=== PATIENT | male | born 1960 | race Caucasian/White ===

== ENCOUNTER 2017-03-09 11:01 | Emergency (ER) | payer OTHER ==
--- NOTE | 2017-03-09 11:21 | CPEKG ---
Heart Rate: 99 RR Interval: 606 QRSD Interval: 118 QT Interval: 380 QTC Interval: 488 QRS [place]: -8 T Wave [place]: 149 EKG Severity - ABNORMAL ECG - EKG Impression: ATRIAL FIBRILLATION, V-RATE 65-114 EKG Impression: NONSPECIFIC INTRAVENTRICULAR CONDUCTION DELAY EKG Impression: PROBABLE LVH WITH SECONDARY REPOL ABNRM Electronically Signed By: Dean Burnett 09-Mar-2017 12:45:25
--- NOTE | 2017-03-09 11:41 | EDPHY ---
H & P Time Seen by Provider: 03/09/17 11:16 HPI/ROS: CHIEF COMPLAINT: Cardioversion HISTORY OF PRESENT ILLNESS: Patient is had fatigue and a little bit of dyspnea on exertion for the last week and a couple of days which is his usual symptom when he goes into atrial fibrillation. His monitor transmitted and he talked with [employer] yesterday. Plan is for cardioversion but apparently he says that external pads do not work any always has to use his implanted device. REVIEW OF SYSTEMS: Fatigue but no syncope or chest pain. Mild dyspnea on exertion. No leg swelling. A comprehensive 10 point review of systems is otherwise negative aside from elements mentioned in the history of present illness. PAST MEDICAL HISTORY: Atrial fibrillation Social history: Primary sawyer helper is Zia General Appearance: Alert and conversant, cooperative. Eyes: No scleral icterus. ENT, Mouth: Normal mucous membranes. Respiratory: Normal respiratory effort, breath sounds equal, lungs are clear to auscultation. Cardiovascular: Irregular but not tachycardic. Gastrointestinal: Abdomen is soft and non tender. Neurological: Alert and oriented x3. Normally conversant. Face symmetric, normal movement and sensation in all extremities. Skin: Warm and dry, no rashes. Musculoskeletal: No peripheral edema and no joint swelling. Psychiatric: Not agitated. Emergency Department course/MDM: Dr. Vicente to see, 1141. [employer] manufacturer representative paged to come to the emergency department 1346: Repeat INR 2.0, cardioversion recommended by sawyer helper, and will be performed by Dr. Vicente, sedation by myself. Patient is NPO since 9:00 p.m. last night except for a sip of water with his medications at 7:00 a.m. today. He has had propofol in the past without complications. 1446: Awake, alert, fluent speech, moving all 4 extremities, back to neurologic baseline. Cardiology follow-up per Dr. Vicente. For cardioversion please see Dr. Vicente's documentation. Smoking Status: Never smoked Constitutional: Initial Vital Signs Temperature (C) 36.5 C 03/09/17 11:04 Heart Rate 117 H 03/09/17 11:04 Respiratory Rate 20 03/09/17 11:04 Blood Pressure 156/93 H 03/09/17 11:04 O2 Sat (%) 96 03/09/17 11:04 O2 Delivery Mode [Post Nasal Cannula Procedure 4th] O2 Delivery Mode [Post Nasal Cannula Procedure 3rd] O2 Delivery Mode [Post Non-Rebreather Mask Procedure 2nd] O2 Delivery Mode [Post Non-Rebreather Mask Procedure 1st] O2 Delivery Mode [Procedural Non-Rebreather Mask 1st] O2 Delivery Mode [.Immediate Non-Rebreather Mask Pre-Procedure] O2 Delivery Mode Room Air O2 (L/minute) [Post Procedure 2 4th] O2 (L/minute) [Post Procedure 2 3rd] O2 (L/minute) [Post Procedure 12 2nd] O2 (L/minute) [Post Procedure 12 1st] O2 (L/minute) [Procedural 1st] 12 O2 (L/minute) [.Immediate Pre- 12 Procedure] Allergies/Adverse Reactions: No Known Allergies Allergy (Verified 03/09/17 11:03) Home Medications: Medication Instructions Recorded Metoprolol Succinate Xr [Toprol Xl 75 mg PO DAILY 12/29/12 50 mg (*)] Warfarin Sodium [Coumadin 3MG (*)] 3 mg PO MWF@12/29/12 Psyllium Husk [Metamucil] 1.56 gm PO DAILY 04/11/16 Warfarin Sodium [Coumadin 4MG (*)] 4 mg PO SUTUTHSA@04/20/16 Levalbuterol Inhaler [Xopenex Hfa 1 puffs IH Q6H PRN #0 mdi 04/22/16 Inhaler (*)] Medical Decision Making - Diagnostics EKG Interpretation: 12-lead EKG interpreted by me; official reading is in trace master. My interpretation is atrial fibrillation rate 65-114 with nonspecific conduction delay Procedures: Procedure: Procedural sedation. Indication: cardioversion A pre-sedation evaluation was completed on the patient at 1400 including medical history, allergies and medications, last oral intake, previous experience with sedation, airway assessment, physical examination. Patient is an appropriate candidate for procedural sedation. The risks, benefits, and alternatives of the sedation were discussed with the patient including but not limited to need for airway intervention, cardiovascular complications, ; and consent obtained. The patient is ASA class 2E, Mallampati and 3/3/2 airway assessments were completed. A time out was completed. The patient was sedated with propofol. The patient was monitored with continuous pulse oximetry , cafeteria monitor and end tidal CO2. There were no complications and no significant hypoxemia. I remained at the bedside for the sedation. The total time I spent in the procedural sedation was 11 minutes. At 1415 the patient is alert, awake, and back to neurological and respiratory baseline. Differential Diagnosis: Differential for weakness and fatigue considered including but not limited to hyponatremia, hypoglycemia, atrial fibrillation, cardiac ischemia. - Data Points Laboratory Results: Laboratory Results 03/09/17 11:50 03/09/17 03/09/17 03/09/17 13:20 11:50 11:50 PT 22.8 SEC H SEC 21.9 SEC H SEC (12.0-15.0) (12.0-15.0) INR 2.00 H 1.90 H (0.83-1.16) (0.83-1.16) APTT 32.9 SEC SEC (23.0-38.0) Sodium 141 mEq/L mEq/L (134-144) Potassium 4.6 mEq/L mEq/L (3.5-5.2) Chloride 108 mEq/L mEq/L (97-110) Carbon Dioxide 20 mEq/l L mEq/l (22-31) Anion Gap 13 mEq/L mEq/L (8-16) BUN 16 mg/dL mg/dL (7-23) Creatinine 1.1 mg/dL mg/dL (0.7-1.3) Estimated GFR > 60 Glucose 95 mg/dL mg/dL (70-100) Calcium 9.0 mg/dL mg/dL (8.5-10.4) Magnesium 2.3 mg/dL mg/dL (1.6-2.3) Departure - Departure Clinical Impression: Atrial fibrillation Qualifiers: Atrial fibrillation type: paroxysmal Qualified Code(s): I48.0 - Paroxysmal atrial fibrillation Condition: Good Instructions: A-fib (Atrial Fibrillation) (ED), Procedural Sedation (ED) Referrals: JUAN LATHAM [Other] - As per Instructions Doug Lizarraga MD [Medical Doctor] - As per Instructions
[2017-03-09 12:26] LABS: ANION GAP 13 mEq/L (8-16); CARBON DIOXIDE 20 mEq/l (22-31); CHLORIDE 108 mEq/L (97-110); CREATININE 1.1 mg/dL (0.7-1.3); GLOMERULAR FILTRATION RATE > 60; GLUCOSE 95 mg/dL (70-100); MAGNESIUM 2.3 mg/dL (1.6-2.3); POTASSIUM 4.6 mEq/L (3.5-5.2); SODIUM 141 mEq/L (134-144)
[2017-03-09 12:40] LABS: INR 1.9 (0.83-1.16); PROTIME(PATIENT) 21.9 SEC (12.0-15.0)
[2017-03-09 13:39] LABS: PROTIME(PATIENT) 22.8 SEC (12.0-15.0)
[2017-03-09 13:40] LABS: APTT 32.9 SEC (23.0-38.0)
[2017-03-09] MEDS ORDERED: PROPOFOL 200 MG/20 ML VIAL ONE (13:54)
[2017-03-09] MEDS ORDERED: PROPOFOL 200 MG/20 ML VIAL IVP ONE (14:05)
--- NOTE | 2017-03-09 14:15 | CPEKG ---
Heart Rate: 79 RR Interval: 759 P-R Interval: 200 QRSD Interval: 106 QT Interval: 380 QTC Interval: 436 P [place]: 39 QRS [place]: -7 T Wave [place]: 161 EKG Severity - ABNORMAL ECG - EKG Impression: SINUS RHYTHM EKG Impression: ATRIAL PREMATURE COMPLEX EKG Impression: LEFT ATRIAL ABNORMALITY EKG Impression: NONSPECIFIC T ABNORMALITIES, LATERAL LEADS EKG Impression: BORDERLINE ST ELEVATION Electronically Signed By: Dean Burnett 09-Mar-2017 14:15:29
[2017-03-09 14:56] VITALS: BP 130/90; PULSE 81; RESP 18; TEMP 97.9; O2SAT 94
--- NOTE | 2017-03-09 20:24 | CPIP ---
[f rep st] INVASIVE CARDIAC PROCEDURE DATE OF PROCEDURE: 03/09/2017 INDICATIONS: Atrial fibrillation. HISTORY OF PRESENT ILLNESS: The patient is seen in the emergency department today with a history of atrial fibrillation. Per interrogation of his ICD, he has been in atrial fibrillation for approxim ately 19 days. He has symptoms of fatigue and dyspnea. PROCEDURE: Internal cardioversion of atrial fibrillation. TECHNIQUE: Following informed consent, and with the assistance of Dr. Dean Burnett for sedation, the p atient was anesthetized with propofol. Once adequate anesthesia was achieved, a single 35 joule int ernal shock was delivered through the patient's defibrillator. Sinus rhythm was then attained. COMPLICATIONS: None. DISPOSITION: The patient will be recovered in the emergency department and discharged home. /[id number]/MODL
== END 2017-03-09 15:00 | disposition home or self-care (01) ==
DX: I48.0 Paroxysmal atrial fibrillation (principal); Z79.01 Long term (current) use of anticoagulants
CPT/HCPCS: J2704

== ENCOUNTER 2017-03-20 20:27 | Emergency (ER) | payer OTHER ==
[2017-03-20 20:35] VITALS: RESP 16
--- NOTE | 2017-03-20 21:13 | EDPHY ---
H & P Stated Complaint: cough/cold/earache bilat; recent flight from [place] Time Seen by Provider: 03/20/17 20:41 HPI/ROS: CHIEF COMPLAINT: Congestion, nonproductive cough, sore throat times 5 days HISTORY OF PRESENT ILLNESS: 56-year-old male history of atrial fibrillation, on daily Coumadin therapy, complaining of 5 days of sore throat, ear fullness, sinus congestion, nonproductive cough, sore throat, sleeping more than usual. Patient has history of atrial fibrillation with most recent cardioversion 10 days ago and states that his symptoms today do not feel consistent with symptoms at that time He denies: Dyspnea, chest pain, back or flank pain, dyspnea with exertion , abdominal pain, urinary abnormality, headache, neck pain , diaphoresis, syncope or near-syncope PRIMARY CARE PROVIDER: Primary pulverizer tender is Dr. Doug Lizarraga REVIEW OF SYSTEMS: A ten point review of systems was performed and is negative with the exception of the items mentioned in the HPI PAST MEDICAL & SURGICAL HISTORY: Atrial fibrillation SOCIAL HISTORY: nonsmoker PHYSICAL EXAM (Prior to examination, patient consented to physical exam, hands were washed and my usual and customary physical exam procedures followed) 1) GENERAL: Well-developed, well-nourished, alert and oriented. Appears nontoxic . 2) HEAD: Normocephalic, atraumatic 3) HEENT: Pupils equal, round, reactive to light bilaterally. Sclera anicteric. Nasopharynx, oropharynx, clear, no lesions. No tonsillar enlargement or tonsillar exudate Ears bilaterally with effusion, no evidence of otitis media or otitis externa 4) NECK: Full range of motion, no meningeal signs. No adenopathy 5) LUNGS: Clear auscultation bilaterally, no wheezes, no rhonchi, no retractions. 6) HEART: no murmur, no heave, no gallop. 7) ABDOMEN: No guarding, no rebound, no focal tenderness, 8) MUSCULOSKELETAL: Moving all extremities, no focal areas of tenderness, no obvious trauma. No peripheral edema or discoloration. 9) BACK: No CVA tenderness 10) SKIN: No rash, no petechiae. 11) Psychiatric: Patient is oriented X 3, there is no agitation. DIFFERENTIAL DIAGNOSIS: in no particular order including but not limited to pneumonia, sinusitis, bronchiolitis, otitis media, atrial fibrillation - Personal History Current Tetanus/Diphtheria Vaccine: Yes Tetanus Vaccine Date: < 10 years - Medical/Surgical History Hx Asthma: No Hx Chronic Respiratory Disease: No Hx Diabetes: No Hx Cardiac Disease: Yes Hx Renal Disease: No Hx Cirrhosis: No Hx Alcoholism: No Hx HIV/AIDS: No Hx Splenectomy or Spleen Trauma: No Other PMH: Afib, cardioversions, sigmoid colon resection, hernia sx, permament defib, HYPERTROPHIC CM DIAGNOSED AGE 17 GENENIC, ODETTE WITH C PAP - Social History Smoking Status: Never smoked Constitutional: Initial Vital Signs Temperature (C) 36.9 C 03/20/17 20:33 Heart Rate 84 03/20/17 20:33 Respiratory Rate 16 03/20/17 20:33 Blood Pressure 151/92 H 03/20/17 20:33 O2 Sat (%) 94 03/20/17 20:33 O2 Delivery Mode Room Air Allergies/Adverse Reactions: No Known Allergies Allergy (Verified 03/09/17 11:03) Home Medications: Medication Instructions Recorded Metoprolol Succinate Xr [Toprol Xl 75 mg PO DAILY 12/29/12 50 mg (*)] Warfarin Sodium [Coumadin 3MG (*)] 3 mg PO MWF@08 12/29/12 Warfarin Sodium [Coumadin 4MG (*)] 4 mg PO SUTUTHSA@04/20/16 Amoxicillin Trihydrate 500 mg PO Q8 7 Days 03/20/17 [Amoxicillin 500mg cap] Benzonatate [Tessalon Pearles (RX)] 200 mg PO TID PRN #15 cap 03/20/17 Medical Decision Making ED Course/Re-evaluation: This patient is maintaining normal saturations, does not appear septic. His lungs are clear bilaterally. Doubt acute cardiac etiology. We discussed more than likely infectious etiology. I think a course of amoxicillin is appropriate in this patient Given his history of atrial fibrillation recommend avoiding macrolides and fluoroquinolones. He has a home INR machine recommend he increase his INR checking from once weekly to once daily. Is also prescribed antitussive. Recommend he follow up with Dr. Lizarraga or his primary care provider in the next 2 days. Definitely should she develop chest pain, dyspnea, or any other symptoms she needs to return to the ER immediately for re- evaluation.Care and management in consultation with secondary supervising physician Dr Doty . Departure - Departure Disposition: Home, Routine, Self-Care Clinical Impression: Upper respiratory infection Qualifiers: URI type: unspecified URI Qualified Code(s): J06.9 - Acute upper respiratory infection, unspecified Condition: Good Instructions: Upper Respiratory Infection (ED) Additional Instructions: Return to the ER immediately if you develop shortness of breath, chest pain, back pain, palpitations, or any other symptoms that concern you. Check your INR daily while on the antibiotics. Referrals: JUAN LATHAM [Other] - 1-2 days without fail Prescriptions: Amoxicillin Trihydrate [Amoxicillin 500mg cap] 500 mg PO Q8 7 Days Benzonatate [Tessalon Pearles (RX)] 200 mg PO TID PRN #15 cap PRN Reason: Cough, Moderate
[2017-03-20 21:36] VITALS: BP 143/81; PULSE 75; TEMP 98.1; O2SAT 93
== END 2017-03-20 21:35 | disposition home or self-care (01) ==
DX: J06.9 Acute upper respiratory infection, unspecified (principal); Z79.01 Long term (current) use of anticoagulants

== ENCOUNTER → 2017-05-28 | Outpatient (CLI) | payer OTHER | LOC: FIMAGING 09:04 | PROVIDERS: ATTEND Internal Medicine Infectious Disease | DX: J98.4 Other disorders of lung (principal); Z95.0 Presence of cardiac pacemaker ==

== ENCOUNTER 2017-10-18 16:36 | Emergency (ER) | payer OTHER ==
--- NOTE | 2017-10-18 17:03 | CPEKG ---
Heart Rate: 116 RR Interval: 517 QRSD Interval: 100 QT Interval: 304 QTC Interval: 423 QRS [place]: -18 T Wave [place]: 160 EKG Severity - ABNORMAL ECG - EKG Impression: ATRIAL FIBRILLATION, V-RATE 88-129 EKG Impression: MULTIFORM VENTRICULAR PREMATURE COMPLEXES EKG Impression: BORDERLINE LEFT AXIS DEVIATION Electronically Signed By: Doug Lizarraga 20-Oct-2017 09:38:33
--- NOTE | 2017-10-18 17:25 | EDPHY ---
H & P Time Seen by Provider: 10/18/17 17:05 HPI/ROS: CHIEF COMPLAINT: Atrial fibrillation HISTORY OF PRESENT ILLNESS: The patient is a 57-year-old male with a history of hypertrophic cardiomyopathy with an AICD in place. The patient has intermittent episodes of atrial fibrillation. He has been defibrillated by his AICD 10 times the past 5 years for atrial fibrillation. The patient states that this morning he went to work and he felt lightheaded and dizzy. These are typical was atrial fibrillation symptoms. His monitor told him that he was in atrial fibrillation at 11:50 a.m.. Patient denies any chest pain. He has mild shortness of breath. He has had a persistent cold and cough. He started prescribed codeine cough medicine yesterday. He has not been taking any decongestant. The patient contacted Dr. Jackson who told him to come to the emergency department. REVIEW OF SYSTEMS: My complete review of systems is negative except as mentioned in the HPI. Past Medical/Surgical History: Includes hypertrophic cardiomyopathy, atrial fibrillation, diverticulitis Past surgical history: AICD placement, sigmoid colon resection Social history: The patient is . He does not smoke or drink alcohol. Smoking Status: Never smoked Physical Exam: Vitals noted GENERAL: Well-appearing, in no acute distress, alert. Occasional cough HEENT: Eyes normal to inspection, normal pharynx, no signs of dehydration. NECK: [No thyromegaly, no lymphadenopathy, supple. RESPIRATORY: Clear to auscultation bilaterally, no rales, rhonchi or wheezing. CVS: Irregularly irregular tachycardia, no rubs, murmurs, or gallops. ABDOMEN: Soft, nontender, nondistended, no organomegaly. BACK: Normal to inspection, no CVA tenderness. SKIN: Normal color, no rash, warm, dry. No pallor. EXTREMITIES: No pedal edema, no calf tenderness, no Homans sign or cords, no joint swelling. NEURO/PSYCH: Alert and oriented x3, normal mood and affect, normal motor sensory exam. No obvious cranial nerve deficit. Constitutional: Initial Vital Signs Temperature (C) 36.3 C 10/18/17 16:50 Heart Rate 126 H 10/18/17 16:50 Respiratory Rate 17 10/18/17 16:50 Blood Pressure 155/102 H 10/18/17 16:50 O2 Sat (%) 93 10/18/17 16:50 O2 Delivery Mode [Post Non-Rebreather Mask Procedure 1st] O2 Delivery Mode [Procedural Non-Rebreather Mask 1st] O2 Delivery Mode [.Immediate Non-Rebreather Mask Pre-Procedure] O2 Delivery Mode Room Air O2 (L/minute) [Post Procedure 15 1st] O2 (L/minute) [Procedural 1st] 15 O2 (L/minute) [.Immediate Pre- 15 Procedure] O2 (L/minute) 5 Allergies/Adverse Reactions: No Known Allergies Allergy (Verified 03/09/17 11:03) Home Medications: Medication Instructions Recorded Metoprolol Succinate Xr [Toprol Xl 75 mg PO DAILY 12/29/12 50 mg (*)] Warfarin Sodium [Coumadin 3MG (*)] 3 mg PO MWF@12/29/12 Warfarin Sodium [Coumadin 4MG (*)] 4 mg PO SUTUTHSA@04/20/16 Amoxicillin Trihydrate 500 mg PO Q8 7 Days cap 03/20/17 [Amoxicillin 500mg cap] Benzonatate [Tessalon Pearles (RX)] 200 mg PO TID PRN #15 cap 03/20/17 Medical Decision Making - Diagnostics EKG Interpretation: Atrial fibrillation at 116. VPC. Borderline left axis deviation. Imaging Results: Imaging Impressions Chest X-Ray 10/18/17 17:26 Impression: No pneumonia or failure. ED Course/Re-evaluation: In the emergency department I discussed possible etiologies with the patient. I answered all of his questions. An IV was placed. Laboratory studies, EKG and chest x-ray were obtained. I discussed the case with Cardiology, Dr. Torres. I was informed that Dr. Jackson will come to the emergency department to evaluate the patient. The patient last ate last night. Dr. Jackson came to the emergency department. He planned to cardiovert the patient with his AICD. He requested I provided conscious sedation. I discussed this plan with the patient. I performed pre conscious sedation exam. He had normal airway. Last ate last evening. Procedure: Procedural sedation. A pre-sedation evaluation was completed on the patient at 1705. Patient is an appropriate candidate for procedural sedation. The patient's vital signs and mental status are appropriate. The risks, benefits and alternatives of the sedation were discussed with the patient. The patient is ASA classification E. The patient's Mallampati airway score was 3 and the patient did meet the 3-3- 2 airway measurements. A time out was completed. The patient was sedated with propofol 100 mg IV. The patient was monitored with continuous pulse oximetry, engineer third assistant and end tidal CO2. There were no complications and no significant hypoxemia. I performed the conscious sedation and procedure. I remained at the bedside for the sedation. The total time I spent in the procedural sedation was 20 min. The patient was examined after the procedural sedation and has returned to their pre-sedation baseline with normal vital signs and a normal examination. 1801: Repeat EKG: Sinus tachycardia at 102. The patient is sinus tachycardia on the monitor. He is answering questions appropriately. The patient was noted to have an elevated troponin at 0.048. I discussed this with Dr. Torres. He felt the patient was safe for discharge if he had no complaints of chest pain. 1856: The patient confirms that he is feeling well. He has no complaints of chest pain or shortness of breath. I gave the patient warnings prior to leaving. He will return with worsening symptoms. Differential Diagnosis: My differential includes but is not limited to ACS, acute [place], atrial fibrillation, hypertrophic cardiomyopathy, electrolyte abnormality, sugar abnormality, dehydration, pneumonia, bronchitis - Data Points Laboratory Results: Laboratory Results 10/18/17 17:05 10/18/17 17:05 10/18/17 10/18/17 17:05 17:05 WBC 5.82 10^3/uL 10^3/uL (3.80-9.50) RBC 5.44 10^6/uL 10^6/uL (4.40-6.38) Hgb 16.1 g/dL g/dL (13.7-17.5) Hct 47.1 % % (40.0-51.0) MCV 86.6 fL fL (81.5-99.8) MCH 29.6 pg pg (27.9-34.1) MCHC 34.2 g/dL g/dL (32.4-36.7) RDW 14.4 % % (11.5-15.2) Plt Count 161 10^3/uL 10^3/uL (150-400) MPV 12.1 fL H fL (8.7-11.7) Neut % (Auto) 73.4 % % (39.3-74.2) Lymph % (Auto) 13.4 % L % (15.0-45.0) [place] % (Auto) 11.5 % % (4.5-13.0) Eos % (Auto) 0.2 % L % (0.6-7.6) Baso % (Auto) 1.0 % % (0.3-1.7) Nucleat RBC Rel Count 0.0 % % (0.0-0.2) Absolute Neuts (auto) 4.27 10^3/uL 10^3/uL (1.70-6.50) Absolute Lymphs (auto) 0.78 10^3/uL L 10^3/uL (1.00-3.00) Absolute Monos (auto) 0.67 10^3/uL 10^3/uL (0.30-0.80) Absolute Eos (auto) 0.01 10^3/uL L 10^3/uL (0.03-0.40) Absolute Basos (auto) 0.06 10^3/uL 10^3/uL (0.02-0.10) Absolute Nucleated RBC 0.00 10^3/uL 10^3/uL (0-0.01) Immature Gran % 0.5 % % (0.0-1.1) Immature Gran # 0.03 10^3/uL 10^3/uL (0.00-0.10) Sodium 142 mEq/L mEq/L (135-145) Potassium 4.2 mEq/L mEq/L (3.5-5.2) Chloride 104 mEq/L mEq/L (97-110) Carbon Dioxide 23 mEq/l mEq/l (22-31) Anion Gap 15 mEq/L mEq/L (8-16) BUN 9 mg/dL mg/dL (7-23) Creatinine 1.2 mg/dL mg/dL (0.7-1.3) Estimated GFR > 60 Glucose 88 mg/dL mg/dL (70-100) Calcium 8.9 mg/dL mg/dL (8.5-10.4) Troponin I 0.048 ng/mL H ng/mL (0.000-0.034) Medications Given: Discontinued Medications Aspirin (Aspirin) 324 mg PO EDNOW ONE Stop: 10/18/17 17:27 Last Admin: 10/18/17 17:49 Dose: Not Given Sodium Chloride (Ns) 500 mls @ 1,000 mls/hr IV EDNOW ONE PRN Reason: Protocol Stop: 10/18/17 17:55 Last Admin: 10/18/17 17:49 Dose: 500 mls Propofol (Diprivan) 100 mg IVP EDNOW ONE Stop: 10/18/17 17:43 Last Admin: 10/18/17 17:47 Dose: 100 mg Departure - Departure Disposition: Home, Routine, Self-Care Clinical Impression: Atrial fibrillation Qualifiers: Atrial fibrillation type: paroxysmal Qualified Code(s): I48.0 - Paroxysmal atrial fibrillation Condition: Good Instructions: A-fib (Atrial Fibrillation) (ED) Additional Instructions: Return with increasing chest pain, shortness of breath, lightheadedness, dizziness or any other concerns. Referrals: JUAN LATHAM [Other] - As per Instructions Misael Bernal MD [Medical Doctor] - 2-3 days, call for appt.
[2017-10-18] MEDS ORDERED: NS 500 ML IV ONE (17:26)
[2017-10-18] MEDS ORDERED: ASPIRIN 81 MG CHEWABLE TAB PO ONE (17:26)
[2017-10-18 17:35] LABS: PLATELET COUNT 161 10^3/uL (150-400)
[2017-10-18] MEDS ORDERED: PROPOFOL 200 MG/20 ML VIAL ONE (17:36)
[2017-10-18] MEDS ORDERED: PROPOFOL 200 MG/20 ML VIAL IVP ONE (17:42)
--- NOTE | 2017-10-18 18:03 | CPEKG ---
Heart Rate: 102 RR Interval: 588 P-R Interval: 196 QRSD Interval: 100 QT Interval: 316 QTC Interval: 412 P [place]: 35 QRS [place]: -28 T Wave [place]: 138 EKG Severity - ABNORMAL ECG - EKG Impression: SINUS TACHYCARDIA EKG Impression: CORBY, CONSIDER BIATRIAL ABNORMALITIES EKG Impression: LEFT VENTRICULAR HYPERTROPHY EKG Impression: ANTERIOR ST ELEVATION, PROBABLY DUE TO LVH Electronically Signed By: Doug Lizarraga 20-Oct-2017 09:38:21
[2017-10-18 18:25] VITALS: RESP 18
--- NOTE | 2017-10-18 18:41 | PDCONSULT ---
[employer] Note: Cardioversion note Indication: AF in a pt who was well anticoagulated Procedure: Internal CV Procedure: Pt sedated by ER physician. Once sedated, he was internally CV using [employer] engineering and scientific programmer. Pt converted to SR. Conclusion: Successful CV
[2017-10-18 18:59] VITALS: BP 120/85; PULSE 102; TEMP 98.4; O2SAT 92
== END 2017-10-18 19:04 | disposition home or self-care (01) ==
DX: I48.0 Paroxysmal atrial fibrillation (principal); E86.9 Volume depletion, unspecified; Z79.01 Long term (current) use of anticoagulants
CPT/HCPCS: J2704

== ENCOUNTER 2018-07-02 11:27 | Day surgery (SDC) | payer OTHER ==
[2018-07-02] MEDS ORDERED: ATROPINE SULFATE 1 MG/10 ML SYR IVP ONE (11:30)
[2018-07-02] MEDS ORDERED: MIDAZOLAM 2 MG/2 ML VIAL IVP ONE (11:30)
[2018-07-02] MEDS ORDERED: fentaNYL 100 MCG/2 ML INJ IVP ONE (11:30)
[2018-07-02] MEDS ORDERED: NS 500 ML IV ONE (11:30)
[2018-07-02 12:17] LABS: INR 3.03 (0.83-1.16); PROTIME(PATIENT) 31.2 SEC (12.0-15.0)
[2018-07-02] MEDS ORDERED: PROPOFOL 200 MG/20 ML VIAL ONE (13:11)
--- NOTE | 2018-07-02 13:11 | PDANEPAE ---
ANE History of Present Illness Afib here for CV ANE Past Medical History - Cardiovascular History Hx Arrhythmias: Yes Hx CHF / Valvular Disease: Yes Cardiovascular History Comment: Cardiomyopathy - Pulmonary History Hx Oxygen in Use at Home: No Hx Sleep Apnea: Yes - Endocrine History Hx Diabetes: No - Chronic Pain History Chronic Pain: No ANE Review of Systems Review of Systems: - Exercise capacity Exercise capacity: >=4 METS - Pacemaker Date Pacemaker Last Checked: 04/21/2016 ANE Patient History - Allergies Allergies/Adverse Reactions: No Known Allergies Allergy (Verified 03/09/17 11:03) - Home Medications Home Medications: Metoprolol Succinate Xr [Toprol Xl 50 mg (*)] 75 mg PO DAILY 12/29/12 [Last Taken 06/15/16 07:00 50mg] Warfarin Sodium [Coumadin 3MG (*)] 3 mg PO MWF@12/29/12 [Last Taken 04/20/16 08:00] Warfarin Sodium [Coumadin 4MG (*)] 4 mg PO SUTUTHSA@04/20/16 [Last Taken 07:00 2mgg] - Anes Hx Anes Hx: no prior problems - Smoking Hx Smoking Status: Never smoked - Alcohol Use Alcohol Use: None - Family Anes Hx Family Anes Hx: none ANE Labs/Vital Signs - Labs Result Diagrams: 07/02/18 11:50 - Vital Signs Height: 183 cm Weight: 100.2 kg ANE Physical Exam - Airway Neck exam: FROM Mallampati Score: Class 2 Mouth exam: normal dental/mouth exam - Pulmonary Pulmonary: no respiratory distress, clear to auscultation - Cardiovascular Cardiovascular: irregularly irregular - ASA Status ASA Status: III ANE Anesthesia Plan Anesthesia Plan: GA with mask Total IV Anesthesia: Yes
--- NOTE | 2018-07-02 13:34 | PDGENHP ---
History & Physical Chief Complaint: symptomatic afib Relevant Physical Exam: s1s2 irreg. cta. [id number] Cardiorespiratory Assessment: for cardioversion. inr has been >2 over last 1 year
--- NOTE | 2018-07-02 13:42 | POSTANESTH ---
Post Anesthetic Evaluation Cardiovascular Status: Normal, Stable, Similar to Pre-Op Cond Respiratory Status: Normal, Stable, Similar to Pre-op Cond. Level of Consciousness/Mental Status: Can Participate in Eval, Alert and Oriented Pain Control: Adequate, Prn Tx Ordered Nausea/Vomiting Control: Adequate, Prn Tx Ordered Complications Possibly Related to Anesthesia: None Noted
--- NOTE | 2018-07-04 09:20 | CPEKG ---
Test Reason : OPEN Blood Pressure : / mmHG Vent. Rate : 108 BPM Atrial Rate : 140 BPM P-R Int : 123 ms QRS Dur : 101 ms QT Int : 316 ms P-R-T Axes : 000 -24 185 degrees QTc Int : 424 ms Afib/flut and V-paced complexes Inferior infarct, old Lateral leads are also involved Atrial fibrillation is new in comparison to prior ECG Confirmed by Yovany Alexis ([id number]) on 07/04/2018 9:20:05 AM Referred By: Confirmed By:Yovany Alexis
--- NOTE | 2018-07-04 09:22 | CPEKG ---
Test Reason : OPEN Blood Pressure : / mmHG Vent. Rate : 081 BPM Atrial Rate : 082 BPM P-R Int : 198 ms QRS Dur : 107 ms QT Int : 371 ms P-R-T Axes : 022 -20 006 degrees QTc Int : 431 ms Sinus rhythm Atrial premature complexes Left atrial enlargement Borderline left axis deviation Borderline abnrm T, anterolateral leads Sinus rhythm has replaced atrial fibrillation noted on prior ECG Confirmed by Yovany Alexis ([id number]) on 07/04/2018 9:22:27 AM Referred By: Confirmed By:Yovany Alexis
--- NOTE | 2018-07-10 06:52 | PDCARD ---
Cardioversion Procedure Procedure: electrical cardioversion Indications: atrial fibrillation, cardiomyopathy Consent: signed and in chart Anticoagulation: warfarin Procedural Details: Pads were placed in anterior-posterior position Synchronized cardioversion attempt #1: other (Internal cardioversion using ICD 35 J synchronized (patient has had failed external DCCV for AFIB and requested we used ICD instead)) Results: normal sinus rhythm Conclusions: successful cardioversion Patient Problems: Problems Problem Status Onset CHF (congestive heart failure) Acute Cardiomyopathy Acute Hypertrophic cardiomyopathy Acute
== END 2018-07-02 14:55 | disposition home or self-care (01) ==
LOC: FCATH 11:27
PROVIDERS: ATTEND Internal Medicine Cardiovascular Disease
PROC: 5A2204Z Restoration of Cardiac Rhythm, Single (ICD-10-PCS; principal; 2018-07-02)
DX: I48.91 Unspecified atrial fibrillation (principal); I42.9 Cardiomyopathy, unspecified
CPT/HCPCS: J0461; J2704

== ENCOUNTER 2018-08-08 06:55 | Day surgery (SDC) | payer OTHER ==
[2018-08-08] MEDS ORDERED: fentaNYL 100 MCG/2 ML INJ IVP ONE (06:59)
[2018-08-08] MEDS ORDERED: ATROPINE SULFATE 1 MG/10 ML SYR IVP ONE (06:59)
[2018-08-08] MEDS ORDERED: NS 500 ML IV ONE (06:59)
[2018-08-08] MEDS ORDERED: MIDAZOLAM 2 MG/2 ML VIAL IVP ONE (06:59)
--- NOTE | 2018-08-08 07:43 | CPEKG ---
Test Reason : OPEN Blood Pressure : / mmHG Vent. Rate : 097 BPM Atrial Rate : 224 BPM P-R Int : 067 ms QRS Dur : 115 ms QT Int : 325 ms P-R-T Axes : 000 -31 126 degrees QTc Int : 413 ms Atrial fibrillation Incomplete left bundle branch block Borderline ST elevation, anterior leads Confirmed by Jamari Manrique ([id number]) on 08/08/2018 7:43:21 AM Referred By: Confirmed By:Jamari Manrique
[2018-08-08 07:48] LABS: INR 2.85 (0.83-1.16); PROTIME(PATIENT) 29.8 SEC (12.0-15.0)
--- NOTE | 2018-08-08 08:13 | PDANEPAE ---
ANE History of Present Illness A-fib ANE Past Medical History - Cardiovascular History Hx Arrhythmias: Yes Hx CHF / Valvular Disease: Yes Cardiovascular History Comment: Cardiomyopathy - Pulmonary History Hx Oxygen in Use at Home: No Hx Sleep Apnea: Yes - Endocrine History Hx Diabetes: No - Chronic Pain History Chronic Pain: No ANE Review of Systems Review of Systems: - Pacemaker Date Pacemaker Last Checked: 04/21/2016 ANE Patient History - Allergies Allergies/Adverse Reactions: No Known Allergies Allergy (Verified 03/09/17 11:03) - Home Medications Home medications: home medication list seen and reviewed Home Medications: Metoprolol Succinate Xr [Toprol Xl 50 mg (*)] 50 mg PO DAILY10 12/29/12 [Last Taken 08/08/18 07:00] Warfarin Sodium [Coumadin 4MG (*)] 4 mg PO DAILY 04/20/16 [Last Taken 08/08/18 06:00] Fluticasone Nasal [Flonase Nasal Stout] 2 inh EACHNARE DAILY 07/02/18 [Last Taken 08/08/18 07:00] Metoprolol Succinate Xr 25 mg PO HS 08/08/18 [Last Taken 08/07/18 22:00] - Anes Hx Anes Hx: no prior problems - Smoking Hx Smoking Status: Never smoked ANE Labs/Vital Signs - Labs Result Diagrams: 08/08/18 07:20 - Vital Signs Height: 183 cm Weight: 103.6 kg ANE Physical Exam - Airway Neck exam: FROM Mallampati Score: Class 2 Mouth exam: normal dental/mouth exam - Pulmonary Pulmonary: no respiratory distress (Cough) - Cardiovascular Cardiovascular: irregularly irregular ANE Anesthesia Plan Anesthesia Plan: GA w LMA (Brief IV GA, without airway device.)
--- NOTE | 2018-08-08 08:26 | PDGENHP ---
History & Physical Chief Complaint: symptomatic afib Relevant Physical Exam: s1s2 irreg cta ao3 Cardiorespiratory Assessment: for cv. inr is therapeutic
[2018-08-08] MEDS ORDERED: LIDOCAINE 1% 5 ML SDV ONE (08:29)
[2018-08-08] MEDS ORDERED: PROPOFOL 200 MG/20 ML VIAL ONE (08:29)
--- NOTE | 2018-08-08 08:38 | PDCARD ---
Cardioversion Procedure Procedure: electrical cardioversion Indications: atrial fibrillation Consent: signed and in chart Anticoagulation: warfarin Procedural Details: Pads were placed in anterior-posterior position. Synchronized cardioversion attempt #1: other (35 J cardioversion using ICD per patient request) Results: normal sinus rhythm Conclusions: successful cardioversion Patient Problems: Problems Problem Status Onset Atrial fibrillation and flutter Acute Hypertrophic cardiomyopathy Acute CHF (congestive heart failure) Acute Cardiomyopathy Acute
--- NOTE | 2018-08-08 09:01 | CPEKG ---
Test Reason : OPEN Blood Pressure : / mmHG Vent. Rate : 091 BPM Atrial Rate : 091 BPM P-R Int : 192 ms QRS Dur : 106 ms QT Int : 330 ms P-R-T Axes : 040 -22 101 degrees QTc Int : 407 ms Sinus rhythm Probable left atrial enlargement Borderline left axis deviation ST elevation, consider anterior injury Confirmed by Jamari Manrique ([id number]) on 08/08/2018 9:00:23 AM Referred By: Confirmed By:Jamari Manrique
== END 2018-08-08 09:24 | disposition home or self-care (01) ==
LOC: FCATH 06:55
PROVIDERS: ATTEND Internal Medicine Cardiovascular Disease
PROC: 5A2204Z Restoration of Cardiac Rhythm, Single (ICD-10-PCS; principal; 2018-08-08)
DX: I48.1 Persistent atrial fibrillation (principal); I42.2 Other hypertrophic cardiomyopathy; I44.7 Left bundle-branch block, unspecified; G47.33 Obstructive sleep apnea (adult) (pediatric); Z79.01 Long term (current) use of anticoagulants; Z95.810 Presence of automatic (implantable) cardiac defibrillator
CPT/HCPCS: J2704

== ENCOUNTER → 2018-08-27 | Day surgery (SDC) | payer OTHER ==
[~2018-08-27] MED LIST: ATROPINE SULFATE 1 MG/10 ML SYR IVP ONE; LIDOCAINE/PRILOCAINE 1 EACH CRTUBE TP ONE; MIDAZOLAM 2 MG/2 ML VIAL IVP ONE; NALOXONE HCL 0.4 MG/ML INJ IVP PRN; NS 500 ML IV ONE; PROPOFOL 200 MG/20 ML VIAL ONE; fentaNYL 100 MCG/2 ML INJ IVP ONE
[2018-08-27 15:29] LABS: INR 3.77 (0.83-1.16); PROTIME(PATIENT) 36.9 SEC (12.0-15.0)
--- NOTE | 2018-08-27 16:32 | PDANEPAE ---
ANE History of Present Illness 58 yo for cv ANE Past Medical History - Cardiovascular History Hx Arrhythmias: Yes Hx CHF / Valvular Disease: Yes Cardiovascular History Comment: Cardiomyopathy - Pulmonary History Hx Oxygen in Use at Home: No Hx Sleep Apnea: Yes - Endocrine History Hx Diabetes: No - Chronic Pain History Chronic Pain: No ANE Review of Systems Review of Systems: - Exercise capacity METS (RN): 4 METS - Pacemaker Date Pacemaker Last Checked: 04/21/2016 ANE Patient History - Allergies Allergies/Adverse Reactions: No Known Allergies Allergy (Verified 03/09/17 11:03) - Home Medications Home medications: home medication list seen and reviewed Home Medications: Metoprolol Succinate Xr [Toprol Xl 50 mg (*)] 50 mg PO DAILY 12/29/12 [Last Taken 08/08/18 07:00] Warfarin Sodium [Coumadin 4MG (*)] 4 mg PO DAILY 04/20/16 [Last Taken 08/08/18 06:00] Metoprolol Succinate Xr [Toprol Xl 25 mg (*)] 25 mg PO HS 08/08/18 [Last Taken 08/07/18 22:00] Budesonide [Rhinocort Allergy] 2 sprays NS DAILY 08/25/18 [Last Taken Unknown] Fexofenadine HCl [Elayne Allergy] 180 mg PO DAILY 08/25/18 [Last Taken Unknown] - Smoking Hx Smoking Status: Never smoked ANE Labs/Vital Signs - Labs Result Diagrams: 08/27/18 15:00 - Vital Signs Height: 5 ft 9 in Weight: 97.522 kg ANE Physical Exam - Airway Neck exam: FROM Mallampati Score: Class 2 Mouth exam: normal dental/mouth exam - Pulmonary Pulmonary: no respiratory distress - Cardiovascular Cardiovascular: regular rate and rhythym - ASA Status ASA Status: III ANE Anesthesia Plan Anesthesia Plan: GA with mask
--- NOTE | 2018-08-27 16:46 | CPEKG ---
Test Reason : OPEN Blood Pressure : / mmHG Vent. Rate : 097 BPM Atrial Rate : 196 BPM P-R Int : 124 ms QRS Dur : 119 ms QT Int : 412 ms P-R-T Axes : -09 001 077 degrees QTc Int : 524 ms Atrial fibrillation Atrial flutter Nonspecific intraventricular conduction delay Borderline T abnormalities, lateral leads Borderline ST elevation, anterior leads Confirmed by Tramaine De La Cruz ([id number]) on 08/27/2018 4:46:18 PM Referred By: Confirmed By:Tramaine De La Cruz
--- NOTE | 2018-08-27 16:49 | CPEKG ---
Test Reason : OPEN Blood Pressure : / mmHG Vent. Rate : 086 BPM Atrial Rate : 078 BPM P-R Int : 201 ms QRS Dur : 104 ms QT Int : 373 ms P-R-T Axes : 040 -29 076 degrees QTc Int : 446 ms Sinus rhythm Atrial premature complexes in couplets Left atrial enlargement Inferior infarct, old Anterior st seg elevation with T wave changes. Confirmed by Tramaine De La Cruz ([id number]) on 08/27/2018 4:49:48 PM Referred By: Confirmed By:Tramaine De La Cruz
--- NOTE | 2018-08-27 16:59 | POSTANESTH ---
Post Anesthetic Evaluation Cardiovascular Status: Normal, Stable Respiratory Status: Normal, Stable Level of Consciousness/Mental Status: Can Participate in Eval Pain Control: Adequate, Prn Tx Ordered Nausea/Vomiting Control: Adequate, Prn Tx Ordered Complications Possibly Related to Anesthesia: None Noted
--- NOTE | 2018-08-27 18:50 | PDCARD ---
Cardioversion Procedure Procedure: electrical cardioversion Indications: atrial fibrillation Consent: signed and in chart Anticoagulation: warfarin Procedural Details: Pads were placed in anterior-posterior position. Results: normal sinus rhythm (1. Pt agreed to external cardioversion, was successful, previously has requested internal DCCV using his AICD. 2. d.w. patient and that if recurrent AFIB, consider admission for dofetilide therapy.) Conclusions: successful cardioversion Patient Problems: Problems Problem Status Onset Atrial fibrillation and flutter Acute Hypertrophic cardiomyopathy Acute CHF (congestive heart failure) Acute Cardiomyopathy Acute
== END | disposition home or self-care (01) ==
LOC: FCATH 14:38
PROVIDERS: ATTEND Internal Medicine Cardiovascular Disease
PROC: 5A2204Z Restoration of Cardiac Rhythm, Single (ICD-10-PCS; principal; 2018-08-27)
DX: I48.0 Paroxysmal atrial fibrillation (principal); I42.2 Other hypertrophic cardiomyopathy; I71.9 Aortic aneurysm of unspecified site, without rupture; Z95.810 Presence of automatic (implantable) cardiac defibrillator; G47.33 Obstructive sleep apnea (adult) (pediatric)
CPT/HCPCS: J0461; J2704

== ENCOUNTER 2018-10-20 10:36 | Inpatient (IN) | payer OTHER ==
[2018-10-20] MEDS ORDERED: ATROPINE SULFATE 1 MG/10 ML SYR IVP ONE (10:37)
[2018-10-20] MEDS ORDERED: MIDAZOLAM 2 MG/2 ML VIAL IVP ONE (10:37)
[2018-10-20] MEDS ORDERED: fentaNYL 100 MCG/2 ML INJ IVP ONE (10:37)
[2018-10-20] MEDS ORDERED: NS 500 ML IV ONE (10:37)
[2018-10-20 11:15] LABS: INR 3.45 (0.83-1.16); PROTIME(PATIENT) 34.5 SEC (12.0-15.0)
--- NOTE | 2018-10-20 11:32 | PDGENHP ---
History & Physical Chief Complaint: AF Relevant Physical Exam: s1s2 irreg cta ao3 Cardiorespiratory Assessment: HCM. Recurrent AF. Plan CV and admit to hospital for dofetilide
[2018-10-20] MEDS ORDERED: LIDOCAINE/PRILOCAINE 1 EACH CRTUBE TP ONE (11:37)
[2018-10-20] MEDS ORDERED: PROPOFOL 200 MG/20 ML VIAL ONE (11:40)
--- NOTE | 2018-10-20 11:52 | PDCARD ---
Cardioversion Procedure Procedure: electrical cardioversion Indications: atrial fibrillation Consent: signed and in chart Anticoagulation: warfarin Procedural Details: Pads were placed in anterior-posterior position. Synchronized cardioversion attempt #1: 200J Results: normal sinus rhythm Conclusions: successful cardioversion Patient Problems: Problems Problem Status Onset Atrial fibrillation and flutter Acute CHF (congestive heart failure) Acute Cardiomyopathy Acute Hypertrophic cardiomyopathy Acute
[2018-10-20] MEDS ORDERED: NALOXONE HCL 0.4 MG/ML INJ IVP PRN (12:00)
--- NOTE | 2018-10-20 12:00 | PDANEPAE ---
ANE History of Present Illness Cv ANE Past Medical History - Cardiovascular History Hx Arrhythmias: Yes Hx CHF / Valvular Disease: Yes Cardiovascular History Comment: Cardiomyopathy - Pulmonary History Hx Oxygen in Use at Home: No Hx Sleep Apnea: Yes - Endocrine History Hx Diabetes: No - Chronic Pain History Chronic Pain: No ANE Review of Systems Review of Systems: - Pacemaker Date Pacemaker Last Checked: 04/21/2016 ANE Patient History - Allergies Allergies/Adverse Reactions: No Known Allergies Allergy (Verified 03/09/17 11:03) - Home Medications Home Medications: Metoprolol Succinate Xr [Toprol Xl 50 mg (*)] 50 mg PO DAILY 12/29/12 [Last Taken 08/08/18 07:00] Warfarin Sodium [Coumadin 4MG (*)] 4 mg PO DAILY 04/20/16 [Last Taken 08/08/18 06:00] Metoprolol Succinate Xr [Toprol Xl 25 mg (*)] 25 mg PO HS 08/08/18 [Last Taken 08/07/18 22:00] Budesonide [Rhinocort Allergy] 2 sprays NS DAILY 08/25/18 [Last Taken Unknown] Fexofenadine HCl [Elayne Allergy] 180 mg PO DAILY 08/25/18 [Last Taken Unknown] - Smoking Hx Smoking Status: Never smoked ANE Labs/Vital Signs - Labs Result Diagrams: 10/20/18 11:00 - Vital Signs Height: 182.88 cm Weight: 98.43 kg ANE Physical Exam - Airway Neck exam: FROM Mallampati Score: Class 2 Mouth exam: normal dental/mouth exam - Pulmonary Pulmonary: clear to auscultation - Cardiovascular Cardiovascular: regular rate and rhythym - ASA Status ASA Status: III ANE Anesthesia Plan Anesthesia Plan: GA with mask
--- NOTE | 2018-10-20 12:01 | POSTANESTH ---
Post Anesthetic Evaluation Cardiovascular Status: Normal, Stable Respiratory Status: Normal, Stable Level of Consciousness/Mental Status: Can Participate in Eval, Mildly Sleepy, Arousable Pain Control: Adequate, Prn Tx Ordered Nausea/Vomiting Control: Adequate, Prn Tx Ordered Complications Possibly Related to Anesthesia: None Noted
[2018-10-20 12:25] LABS: PLATELET COUNT 252 10^3/uL (150-400)
[2018-10-20] MEDS: DOFETILIDE 0.25 MG CAP PO SCH ×2 (12:44→21:11)
--- NOTE | 2018-10-20 13:05 | PDMN ---
Medical Necessity Medical necessity: M505 afib: A-1 day INPT for - recurrent afib admit for dofetilide
--- NOTE | 2018-10-20 15:58 | CPEKG ---
Test Reason : OPEN Blood Pressure : / mmHG Vent. Rate : 096 BPM Atrial Rate : 217 BPM P-R Int : 175 ms QRS Dur : 105 ms QT Int : 331 ms P-R-T Axes : 134 -11 083 degrees QTc Int : 419 ms Atrial fibrillation Nonspecific T abnormalities, lateral leads Confirmed by Kris Godoy ([id number]) on 10/20/2018 3:58:16 PM Referred By: Doug Lizarraga Confirmed By:Kris Godoy
--- NOTE | 2018-10-20 15:59 | CPEKG ---
Test Reason : OPEN Blood Pressure : / mmHG Vent. Rate : 078 BPM Atrial Rate : 078 BPM P-R Int : 201 ms QRS Dur : 106 ms QT Int : 360 ms P-R-T Axes : 028 -09 058 degrees QTc Int : 411 ms Sinus rhythm Atrial premature complex Left atrial enlargement Borderline ST elevation, anterior leads Confirmed by Kris Godoy ([id number]) on 10/20/2018 3:59:16 PM Referred By: Doug Lizarraga Confirmed By:Kris Godoy
--- NOTE | 2018-10-20 16:00 | CPEKG ---
Test Reason : OPEN Blood Pressure : / mmHG Vent. Rate : 084 BPM Atrial Rate : 084 BPM P-R Int : 208 ms QRS Dur : 113 ms QT Int : 372 ms P-R-T Axes : 043 002 147 degrees QTc Int : 440 ms Sinus rhythm Borderline prolonged MD interval Left atrial enlargement Incomplete left bundle branch block Minimal ST elevation, anterior leads Confirmed by Kris Godoy ([id number]) on 10/20/2018 3:59:56 PM Referred By: Doug Lizarraga Confirmed By:Kris Godoy
[2018-10-20] MEDS ORDERED: HYDROcodone/CPM TUSSIONEX 5 ML UDSYR PO PRN (17:13)
[2018-10-20] MEDS ORDERED: PROTOCOL MAGNESIUM 1 DOSE IV PRN (17:46)
[2018-10-20] MEDS ORDERED: PROTOCOL POTASSIUM 1 DOSE MISC PRN (17:46)
[2018-10-20] MEDS ORDERED: DOFETILIDE 0.25 MG CAP PO SCH (21:00)
[2018-10-20] MEDS: METOPROLOL SUCCINATE XR 50 MG TAB PO SCH (21:10)
[2018-10-21 06:10] LABS: INR 3.9 (0.83-1.16); PROTIME(PATIENT) 37.9 SEC (12.0-15.0)
[2018-10-21] MEDS ORDERED: CETIRIZINE 10 MG TAB PO PRN (09:00)
[2018-10-21] MEDS ORDERED: FLUTICASONE NASAL 120 SPRAYS/16 GM MDI EACHNARE PRN (09:00)
--- NOTE | 2018-10-21 09:14 | PDCARPN ---
Cardiology Progress Note Chief Complaint: Atrial fibrillation Assessment/Plan: Assessment: 1. Hypertrophic cardiomyopathy 2. Atrial fibrillation: Cardioversion yesterday. Started loading Tikosyn 500mcg BID yesterday, ECG 2-hrs post-dose demonstrates JT <400ms. Continue Tikosyn loading today. 3. NSVT: Several brief runs of NSVT noted on telemetry. Indication for his ICD was NSVT in the past. This is asymptomatic. Plan: 1. Continue Tikosyn 500mcg BID with ECG 2-hrs post-administration 2. Plan for DC home tomorrow afternoon 10/21/18 09:11 Subjective: No issues overnight. No chest discomfort, lightheadedness, dizziness, or pre- syncope. Reviewed/Discussed With: multidisciplinary team Time Spent with Patient: greater than 25 minutes Time Spent with Patient: Greater than 25 minutes spent on this patients care, greater than 50% of time spent counseling, educating, and coordinating care regarding the above mentioned plan. Objective: Vital Signs (8 Hrs) Temp Pulse Resp BP Pulse Ox 10/21/18 07:24 36.6 C 76 18 126/81 H 95 10/21/18 04:00 36.6 C 73 14 131/88 H 93 Intake/Output (24 Hrs) 10/20/18 10/21/18 10/22/18 05:59 05:59 05:59 Intake Total 800 Balance 800 Intake: Oral (ml) 800 Other: Weight 98.43 kg Output Comment Toilet per pt Number of Voids Toilet 2 Result Diagrams: 10/20/18 12:15 10/21/18 05:22 EKG: NSR with JT <400ms - Physical Exam Constitutional: WDWN, healthy appearing, no apparent distress Ears, Nose, Mouth, Throat: moist mucous membranes, no oral ulcers, no thrush Cardiovascular: regular rate and rhythm Respiratory: clear to auscultate bilat, no crackles, no wheezes Neurologic: AAOx3, CN II-XII grossly intact Psychiatric: cooperative, interactive, following commands, not anxious ICD10 Worksheet Patient Problems: Problems Problem Status Onset Atrial fibrillation and flutter Acute CHF (congestive heart failure) Acute Cardiomyopathy Acute Hypertrophic cardiomyopathy Acute
[2018-10-21] MEDS: METOPROLOL SUCCINATE XR 50 MG TAB PO SCH ×2 (09:32→20:58)
[2018-10-21] MEDS: DOFETILIDE 0.25 MG CAP PO SCH ×2 (09:33→20:58)
[2018-10-21] MEDS ORDERED: POTASSIUM CL 10 MEQ TAB PO ONE (09:35)
--- NOTE | 2018-10-21 15:29 | ASMTCMCOM ---
CM Note CM Note Notes: Patient admitted for A-Fib, currently on Tikosyn. Patient will likely be able to discharge tomorrow, do not anticipate any Case Management needs at this time. We are available should anything change. Plan: Likely independent. Date Signed: 10/21/2018 03:28 PM Electronically Signed By:Magaly Kim RN
--- NOTE | 2018-10-21 16:39 | CPEKG ---
Test Reason : OPEN Blood Pressure : / mmHG Vent. Rate : 077 BPM Atrial Rate : 077 BPM P-R Int : 207 ms QRS Dur : 112 ms QT Int : 387 ms P-R-T Axes : 039 -01 000 degrees QTc Int : 438 ms Sinus rhythm Borderline prolonged ID interval Borderline T wave abnormalities Minimal ST elevation, anterior leads Confirmed by Kris Godoy ([id number]) on 10/21/2018 4:39:10 PM Referred By: Doug Lizarraga Confirmed By:Kris Godoy
--- NOTE | 2018-10-21 16:42 | CPEKG ---
Test Reason : OPEN Blood Pressure : / mmHG Vent. Rate : 074 BPM Atrial Rate : 075 BPM P-R Int : 205 ms QRS Dur : 114 ms QT Int : 486 ms P-R-T Axes : 032 -06 185 degrees QTc Int : 540 ms Sinus rhythm Borderline prolonged AK interval Nonspecific T abnormalities, diffuse leads Prolonged QT interval Confirmed by Kris Godoy ([id number]) on 10/21/2018 4:41:27 PM Referred By: Doug Lizarraga Confirmed By:Kris Godoy
[2018-10-21] MEDS: WARFARIN SODIUM 4 MG TAB PO SCH (19:19)
[2018-10-22 08:28] LABS: INR 3.14 (0.83-1.16); PROTIME(PATIENT) 32.1 SEC (12.0-15.0)
[2018-10-22] MEDS: METOPROLOL SUCCINATE XR 50 MG TAB PO SCH ×2 (09:03→20:57)
[2018-10-22] MEDS: DOFETILIDE 0.25 MG CAP PO SCH ×2 (09:03→20:57)
--- NOTE | 2018-10-22 09:10 | PDCARPN ---
Cardiology Progress Note Chief Complaint: Atrial fibrillation Tikosyn loading Assessment/Plan: Assessment: 1. Hypertrophic cardiomyopathy 2. Atrial fibrillation: Cardioversion 10/20, he has maintained NSR since then. Started loading Tikosyn 500mcg BID 10/20, ECG 2-hrs post-administration last NOC demonstrates JT 440ms. 3. NSVT: Several brief runs of NSVT noted on telemetry. Indication for his ICD was history of NSVT. This is asymptomatic. Plan: 1. Decrease Tikosyn to 250mcg BID with ECG 2-hrs post-administration 2. Plan for DC home tomorrow after his AM dose of Tikosyn 10/22/18 09:07 Subjective: No issues overnight. No palpitations, lightheadedness, dizziness, or fatigue Reviewed/Discussed With: multidisciplinary team Time Spent with Patient: greater than 25 minutes Time Spent with Patient: Greater than 25 minutes spent on this patients care, greater than 50% of time spent counseling, educating, and coordinating care regarding the above mentioned plan. Objective: Vital Signs (8 Hrs) Temp Pulse Resp BP Pulse Ox 10/22/18 03:43 36.7 C 77 14 117/86 H 93 Intake/Output (24 Hrs) 10/21/18 10/22/18 10/23/18 05:59 05:59 05:59 Intake Total 800 475 Balance 800 475 Intake: Oral (ml) 800 475 Other: Weight 98.43 kg Output Comment Toilet per pt Number of Voids Toilet 2 Result Diagrams: 10/20/18 12:15 10/22/18 03:05 EKG: NSR, JT 440ms Telemetry: NSR - Physical Exam Constitutional: WDWN Eyes: PERRL, EOMI, anicteric sclera Ears, Nose, Mouth, Throat: moist mucous membranes, no oral ulcers, no thrush Cardiovascular: regular rate and rhythm Peripheral Pulses: 2+: dorsalis-pedis (R), dorsalis-pedis (L) Respiratory: clear to auscultate bilat, no crackles, no wheezes Gastrointestinal: normoactive bowel sounds Skin: no rashes, no abrasions, no ulcers, warm, no edema Neurologic: AAOx3, CN II-XII grossly intact Psychiatric: cooperative, interactive, following commands, not anxious ICD10 Worksheet Patient Problems: Problems Problem Status Onset Atrial fibrillation and flutter Acute CHF (congestive heart failure) Acute Cardiomyopathy Acute Hypertrophic cardiomyopathy Acute
[2018-10-22] MEDS ORDERED: POTASSIUM CL 10 MEQ TAB PO ONE (10:47)
[2018-10-22] MEDS: WARFARIN SODIUM 4 MG TAB PO SCH (12:06)
[2018-10-23] MEDS: METOPROLOL SUCCINATE XR 50 MG TAB PO SCH (09:02)
[2018-10-23] MEDS: DOFETILIDE 0.25 MG CAP PO SCH (09:02)
--- NOTE | 2018-10-23 09:06 | CPEKG ---
Test Reason : OPEN Blood Pressure : / mmHG Vent. Rate : 079 BPM Atrial Rate : 079 BPM P-R Int : 206 ms QRS Dur : 114 ms QT Int : 368 ms P-R-T Axes : 029 -01 175 degrees QTc Int : 422 ms Sinus rhythm Ventricular premature complex Borderline prolonged NC interval Nonspecific T abnormalities, lateral leads Minimal ST elevation, anterior leads Confirmed by Kris Godoy ([id number]) on 10/23/2018 9:06:25 AM Referred By: Doug Lizarraga Confirmed By:Kris Godoy
--- NOTE | 2018-10-23 09:18 | CPEKG ---
Test Reason : OPEN Blood Pressure : / mmHG Vent. Rate : 079 BPM Atrial Rate : 080 BPM P-R Int : 204 ms QRS Dur : 110 ms QT Int : 375 ms P-R-T Axes : 040 014 192 degrees QTc Int : 430 ms Sinus rhythm Ventricular premature complex Borderline prolonged NM interval Nonspecific T abnormalities, lateral leads Confirmed by Kris Godoy ([id number]) on 10/23/2018 9:17:39 AM Referred By: Doug Lizarraga Confirmed By:Kris Godoy
--- NOTE | 2018-10-23 09:59 | CPEKG ---
Test Reason : OPEN Blood Pressure : / mmHG Vent. Rate : 077 BPM Atrial Rate : 077 BPM P-R Int : 200 ms QRS Dur : 119 ms QT Int : 443 ms P-R-T Axes : 036 005 147 degrees QTc Int : 502 ms Sinus rhythm Ventricular premature complex Left atrial enlargement Incomplete left bundle branch block Confirmed by Kris Godoy ([id number]) on 10/23/2018 9:59:21 AM Referred By: Doug Lizarraga Confirmed By:Kris Godoy
[2018-10-23 11:59] VITALS: BP 131/87
--- NOTE | 2018-10-24 09:18 | CPEKG ---
Test Reason : OPEN Blood Pressure : / mmHG Vent. Rate : 075 BPM Atrial Rate : 075 BPM P-R Int : 206 ms QRS Dur : 101 ms QT Int : 379 ms P-R-T Axes : 035 -15 057 degrees QTc Int : 424 ms Sinus rhythm Borderline prolonged WA interval Left atrial enlargement Borderline left axis deviation Borderline T abnormalities, lateral leads Confirmed by Kris Godoy ([id number]) on 10/24/2018 9:18:12 AM Referred By: Doug Lizarraga Confirmed By:Kris Godoy
--- NOTE | 2018-10-24 09:25 | GDS ---
[f rep st] DISCHARGE SUMMARY [employer]: Doug Lizarraga MD. ADMISSION DIAGNOSES: 1. Persistent atrial fibrillation. 2. Hypertrophic cardiomyopathy. 3. Nonsustained ventricular tachycardia. DISCHARGE DIAGNOSES: 1. Atrial fibrillation, status post Tikosyn loading. 2. Hypertrophic cardiomyopathy. 3. Nonsustained ventricular tachycardia. PROCEDURES PERFORMED DURING HOSPITALIZATION: Direct current cardioversion. HOSPITAL COURSE: The patient presented 10/20/2018, for cardioversion and admission for Tikosyn loadi ng in the setting of increasing frequency of atrial fibrillation requiring several recent cardioversi ons. He underwent successful cardioversion on October 20 and was started on Tikosyn 500 mcg b.i.d. Post administration ECGs demonstrated JT interval less than 400 milliseconds for his first 2 doses, but his JT interval lengthened to 426 milliseconds after his third dose. His Tikosyn dose was then reduced to 250 mcg twice daily at that time, and he maintained a JT interval less than 400 millisecon ds for the duration of his hospitalization and for 3 doses of Tikosyn. He has maintained normal sinu s rhythm throughout his hospitalization, and telemetry has demonstrated several episodes of nonsustai agus ventricular tachycardia. These episodes of nonsustained ventricular tachycardia have been asympt omatic, and he has not had any sustained arrhythmia requiring defibrillation from his AICD. He siobhan nues to feel very well and is tolerating the Tikosyn without side effects at this time. He is approp riate and stable for discharge home. PHYSICAL EXAMINATION: GENERAL: Alert and oriented x4. No apparent distress. VITAL SIGNS: Blood p ressure 131/87, heart rate 75, SpO2 of 95% on room air, respiratory rate 14, temperature 36.4 degrees Celsius. RESPIRATORY: Lungs are clear to auscultation without adventitious breath sounds. CARDIAC : Normal S1 and S2. No S3 or S4. Rhythm is regular. ABDOMEN: Normoactive bowel sounds times all 4 quadrants. No masses or tenderness. Abdomen is soft. SKIN: [place], warm, dry without cyanosis, cl ubbing, or peripheral edema. EXTREMITIES: Pulses 2+ bilaterally. LABORATORY STUDIES: Drawn today demonstrate normal potassium and magnesium. PROCEDURES: Cardioversion as mentioned above. DISCHARGE DISPOSITION: Patient will be discharged home in stable condition without activity restrict ions. DISCHARGE MEDICATIONS: Please see discharge medication reconciliation sheet for full details. Aminata bronson note that patient has been started on Tikosyn 250 mcg twice daily. DISCHARGE INSTRUCTIONS: Detailed review of instructions reviewed related to Tikosyn administration, potential side effects, potential drug interactions, and the need to present for further evaluation i f he should experience any protracted vomiting, diarrhea, or impaired p.o. intake. The patient will follow up in clinic in 3 months, sooner for any new or concerning symptoms. Time spent on discharge greater than 30 minutes. /[id number]/MODL
== END 2018-10-23 13:45 | disposition home or self-care (01) | DRG 310 ==
LOC: FCATH 10:36 → F2W 11:54
PROVIDERS: ADMIT Internal Medicine Cardiovascular Disease; ATTEND Internal Medicine Cardiovascular Disease
DX: I48.1 Persistent atrial fibrillation (principal); I42.2 Other hypertrophic cardiomyopathy; G47.33 Obstructive sleep apnea (adult) (pediatric); I47.2 Ventricular tachycardia; Z95.810 Presence of automatic (implantable) cardiac defibrillator
CPT/HCPCS: J0461; J2704